=== PATIENT | male | born 1965 | race Caucasian/White ===

== ENCOUNTER 2017-02-08 16:52 | Observation (INO) | payer OTHER, BC ==
[~2017-02-08] VITALS: Ht 188 cm; Wt 95.1 kg
[~2017-02-08 16:52] MED LIST: ALBUTEROL SULF8.5 GM IH; HYCODAN SYRUP480 ML PO; PREDNISONE20 MG PO
[2017-02-08 18:07] LABS: HEMATOCRIT 39.3 % (38.0-50.0); MCH 31.1 PG (29.0-34.0); MCHC 34.4 G/DL (30.0-36.0); MCV 90.6 FL (86-99); MEAN PLAT.VOLUME 9.6 uM^3 (9.0-12.4); PLATELET COUNT 229 K/uL (156-360); RBC DIS.WIDTH-CV 12.2 % (11.8-14.6); RBC DIS.WIDTH-SD 40.8 % (39-53); RED BLOOD COUNT 4.34 M/uL (4.00-5.50); WHITE BLOOD COUNT 6.5 K/uL (4.1-10.2)
[2017-02-08 18:15] LABS: CHLORIDE 107 mEq/L (99-109); SODIUM 140 mEq/L (136-147)
[2017-02-08] MEDS ORDERED: FENOFIBRATE160 M1 PO (18:15)
[2017-02-08] MEDS ORDERED: CITALOPRAM HBR40 MG PO (18:15)
[2017-02-08] MEDS ORDERED: BUPROPION XL300 MG PO (18:16)
[2017-02-08 18:17] LABS: GLUCOSE 87 mg/dL (70-99)
[2017-02-08 18:18] LABS: ANION GAP 10 MEQ/L (2-14)
[2017-02-08 18:21] LABS: GFR ESTIMATE (CALCULATED) > 59 mL/min/
[2017-02-08 18:22] LABS: UREA NITROGEN (BUN) 19 mg/dL (9-23)
[2017-02-08 18:27] LABS: TROP-I INTERPRETATION NEGATIVE; TROPONIN-I 0.02 ng/mL (0.0-0.30)
[2017-02-08 22:56] LABS: TROP-I INTERPRETATION NEGATIVE; TROPONIN-I 0.01 ng/mL (0.0-0.30)
[2017-02-09 00:20] VITALS: BP 120/70
[2017-02-09 02:56] VITALS: BP 114/56
[2017-02-09 06:17] LABS: HDL CHOLESTEROL 36 MG/DL (Desirable>=40); LDL CHOLESTEROL 95 mg/dL (Desirable<100); NON-HDL CHOLESTEROL 146 mg/dL (Desirable<160); TOTAL CHOLESTEROL 182 mg/dL (Desirable<200); TRIGLYCERIDES 256 MG/DL (Normal: <150)
[2017-02-09 06:28] LABS: TROP-I INTERPRETATION NEGATIVE; TROPONIN-I < 0.01 ng/mL (0.0-0.30)
[2017-02-09] MEDS ORDERED: Tums,OsCal PO (11:36)
[2017-02-09] MEDS ORDERED: NITROSTAT0.4 MG SL (11:36)
[2017-02-09] MEDS ORDERED: FAMOTIDINE20 MG PO (11:36)
[2017-02-09] MEDS ORDERED: ADULT LOW DOSE81 M1 PO (11:36)
[2017-02-09 11:39] VITALS: BP 118/72
[2017-02-09 11:39] LABS: TROP-I INTERPRETATION NEGATIVE; TROPONIN-I < 0.01 ng/mL (0.0-0.30)
== END 2017-02-09 15:12 | disposition home or self-care (01) ==
LOC: EME 16:52 → EDOF 22:52 → ENRESERV 22:53 → ENPENDDIS 02-09 → 5WEST 02-09 00:01
PROVIDERS: Physician Assistant; Physician Assistant Medical
DX: R07.89 Other chest pain (principal); I45.10 Unspecified right bundle-branch block; E78.5 Hyperlipidemia, unspecified; F41.9 Anxiety disorder, unspecified; H91.90 Unspecified hearing loss, unspecified ear; K21.9 Gastro-esophageal reflux disease without esophagitis; Z82.49 Family history of ischemic heart disease and other diseases of the circulatory system; Z90.49 Acquired absence of other specified parts of digestive tract
CPT/HCPCS: 71020; 71275; 80048; 80061; 84484; 85027; 85379; 93005; 99281; 99285; G0378; J7030

== ENCOUNTER 2017-10-22 21:33 | Emergency (ER) | payer BC, OTHER ==
[~2017-10-22] VITALS: Ht 188 cm; Wt 98.4 kg
[~2017-10-22 21:33] MED LIST changes: +ADULT LOW DOSE81 M1 PO; +BUPROPION XL300 MG PO; +CITALOPRAM HBR40 MG PO; +FAMOTIDINE20 MG PO; +FENOFIBRATE160 M1 PO; +NITROSTAT0.4 MG SL; +Tums,OsCal PO
[2017-10-22 23:11] LABS: APPEARANCE CLEAR ((CLEAR)); BILIRUBIN NEGATIVE; BLOOD NEGATIVE; COLOR STRAW ((YELLOW)); GLUCOSE (STRIP) NEGATIVE; KETONES NEGATIVE; LEUKOCYTES TRACE; NITRITE NEGATIVE; PROTEIN (STRIP) NEGATIVE; SPECIFIC GRAVITY 1.014 (1.000-1.030); UROBILINOGEN 0.2 MG/DL (0.2-1.0)
[2017-10-22 23:25] LABS: BACTERIA NONE SEEN /HPF; EPITHELIAL CELLS NONE SEEN /HPF; MUCUS TRACE /LPF; RED BLOOD CELLS 0-5 /HPF (0-5); WHITE BLOOD CELLS 0-5 /HPF (0-5)
[2017-10-23] MEDS ORDERED: INDOCIN50 MG PO (00:04)
[2017-10-23 00:31] VITALS: BP 146/72
== END 2017-10-23 00:31 | disposition home or self-care (01) ==
LOC: EME 21:33
PROVIDERS: Physician Assistant
DX: S90.32XA Contusion of left foot, initial encounter (principal); S30.811A Abrasion of abdominal wall, initial encounter; M79.642 Pain in left hand; M79.641 Pain in right hand; S80.212A Abrasion, left knee, initial encounter; W11.XXXA Fall on and from ladder, initial encounter; Y92.008 Other place in unspecified non-institutional (private) residence as the place of occurrence of the external cause; F32.9 Major depressive disorder, single episode, unspecified; E78.5 Hyperlipidemia, unspecified; F41.9 Anxiety disorder, unspecified; I10 Essential (primary) hypertension; K21.9 Gastro-esophageal reflux disease without esophagitis; H91.90 Unspecified hearing loss, unspecified ear
CPT/HCPCS: 73130; 73630; 81003; 99281; 99284